=== PATIENT | female | born 1940 | race Caucasian/White ===

== ENCOUNTER 2018-11-26 10:12 | Outpatient (CLI) | payer MEDICARE, SELFPAY ==
[2018-11-26 10:36] LABS: Absolute Basophil Count 0.06 k/cumm (0.0-0.2); Absolute Eosinophil Count 0.13 k/cumm (0.0-0.7); Absolute Lymphocyte Count 0.76 k/cumm (1.2-3.4); Absolute Monocyte Count 0.32 k/cumm (0.11-0.7); Absolute Neutrophil Count 1.99 k/cumm (1.2-6.7); Basophils % 1.8; HCT 44.5 % (36.0-46.0); HGB 14.7 g/dL (12.0-15.5); Lymphocytes % 23.3; Mean Corpuscular Hemoglobin 32.7 pg (27.0-33.0); Mean Corpuscular Volume 98.9 fL (80-95); Mean Platelet Volume 10.1 fL (8.0-11.0); Monocytes % 9.8; Neutrophils % 61.1; Platelet Count 184 x1000/uL (130-400); RBC Distribution Width 14.2 % (11.7-14.6); White Blood Cell Count 3.26 k/cumm (4.4-10.8)
[2018-11-26 11:19] LABS: ALT 20 U/L (12-78); AST 10 U/L (15-37); Albumin 3.7 g/dL (3.4-5.0); Alkaline Phosphatase 120 U/L (46-116); BUN 17 mg/dL (7-18); Bilirubin, Total 0.4 mg/dL (0.2-1.0); Calcium 9.6 mg/dL (8.5-10.1); Chloride 104 mmol/L (98-107); Glucose 93 mg/dL (70-100); LDH 137 U/L (81-234); Potassium 4.3 mmol/L (3.5-5.1); Sodium 142 mmol/L (136-145); Total Protein 6.5 g/dL (6.4-8.2)
== END 2018-11-26 10:32 ==
PROVIDERS: PCP Nurse Practitioner Family; Visit Provider Internal Medicine Hematology & Oncology
DX: C82.00 Follicular lymphoma grade I, unspecified site (principal)
CPT/HCPCS: 36415; 80053; 83615; 85025

== ENCOUNTER 2021-01-25 03:03 | Outpatient (CLI) | payer MEDICARE, SELFPAY ==
[2021-01-25 09:44] LABS: Absolute Basophil Count 0.07 10^3/uL (0.0-0.2); Absolute Eosinophil Count 0.13 10^3/uL (0.0-0.7); Absolute Lymphocyte Count 1.02 10^3/uL (1.2-3.4); Absolute Monocyte Count 0.35 10^3/uL (0.1-0.8); Absolute Neutrophil Count 2.22 10^3/uL (1.2-6.7); Basophils % 1.8; Eosinophils % 3.4; HCT 44.4 % (36.0-46.0); HGB 14.3 g/dL (11.2-15.7); Lymphocytes % 26.9; MCH 32.6 pg (27.0-33.0); MCHC 32.2 % (32.0-36.0); MCV 101.4 fL (80-95); MPV 9.8 fL (8.0-11.0); Monocytes % 9.2; Neutrophils % 58.7; Nucleated RBC 0 %; Platelet Count 162 10^3/uL (130-400); RBC 4.38 10^6/uL (3.93-5.22); RDW 12.7 % (11.7-14.6); RDW-SD 47.7 fL; WBC 3.79 10^3/uL (4.4-10.8)
[2021-01-25 09:56] LABS: ALT 19 U/L (14-59); AST 13 U/L (15-37); Alkaline Phosphatase 137 U/L (46-116); Anion Gap 5.7 mmol/L (3-11); BUN 18 mg/dL (7-18); Bilirubin, Total 0.5 mg/dL (0.2-1.0); CO2 31.3 mmol/L (21.0-32.0); CREATININE 0.9 mg/dL (0.55-1.02); Calcium 9.4 mg/dL (8.5-10.1); Chloride 107 mmol/L (98-107); Glucose 88 mg/dL (74-106); LDH 139 U/L (81-234); Potassium 4.3 mmol/L (3.5-5.1); Sodium 144 mmol/L (136-145); Total Protein 6.9 g/dL (6.4-8.2)
== END 2021-01-25 03:04 | disposition home or self-care (01) ==
LOC: LBO 03:03
PROVIDERS: PCP Nurse Practitioner Family; Visit Provider Internal Medicine Hematology & Oncology
DX: C82.90 Follicular lymphoma, unspecified, unspecified site (principal)
CPT/HCPCS: 36415; 80053; 83615; 85025

== ENCOUNTER 2022-02-14 12:32 | Outpatient (CLI) | payer MEDICARE, SELFPAY ==
[2022-02-14 11:41] LABS: Abs Immature Grans 0.01 10^3/uL (0.0-0.06); Absolute Basophil Count 0.06 10^3/uL (0.0-0.2); Absolute Eosinophil Count 0.09 10^3/uL (0.0-0.7); Absolute Lymphocyte Count 1.45 10^3/uL (1.2-3.4); Absolute Monocyte Count 0.52 10^3/uL (0.1-0.8); Absolute Neutrophil Count 3.64 10^3/uL (1.2-6.7); Eosinophils % 1.6; HCT 41.4 % (36.0-46.0); HGB 13.4 g/dL (11.2-15.7); Immature Grans % 0.2; Lymphocytes % 25.1; MCH 32.2 pg (27.0-33.0); MCHC 32.4 % (32.0-36.0); MCV 100 fL (80-95); MPV 10.1 fL (8.0-11.0); Neutrophils % 63.1; Platelet Count 173 10^3/uL (130-400); RBC 4.16 10^6/uL (3.93-5.22); RDW 13.2 % (11.7-14.6); RDW-SD 48.8 fL; WBC 5.77 10^3/uL (4.4-10.8)
[2022-02-14 12:24] LABS: ALT 17 U/L (14-59); AST 12 U/L (15-37); Albumin 3.9 g/dL (3.4-5.0); Alkaline Phosphatase 150 U/L (46-116); Anion Gap 7.4 mmol/L (3-11); BUN 17 mg/dL (7-18); Bilirubin, Total 0.6 mg/dL (0.2-1.0); CO2 29.6 mmol/L (21.0-32.0); CREATININE 0.8 mg/dL (0.55-1.02); Calcium 9.9 mg/dL (8.5-10.1); Chloride 106 mmol/L (98-107); Estimated GFR 73.98 (mL/min/1.73m2); Glucose 105 mg/dL (74-106); LDH 152 U/L (81-234); Potassium 4.7 mmol/L (3.5-5.1); Sodium 143 mmol/L (136-145); Total Protein 7.2 g/dL (6.4-8.2)
[2022-02-15 11:22] LABS: IgG 419 mg/dL (610-1,616)
== END 2022-02-14 12:33 | disposition home or self-care (01) ==
LOC: LBO 12:36
PROVIDERS: PCP Nurse Practitioner Family; Visit Provider Nurse Practitioner Adult Health
DX: D80.1 Nonfamilial hypogammaglobulinemia (principal); C82.09 Follicular lymphoma grade I, extranodal and solid organ sites
CPT/HCPCS: 36415; 80053; 82784; 83615; 85025

== ENCOUNTER 2023-03-26 01:47 | Outpatient (CLI) | payer MEDICARE, SELFPAY ==
[2023-03-26 10:22] LABS: Abs Immature Grans 0.01 10^3/uL (0.0-0.06); Absolute Basophil Count 0.07 10^3/uL (0.0-0.2); Absolute Eosinophil Count 0.05 10^3/uL (0.0-0.7); Absolute Lymphocyte Count 0.87 10^3/uL (1.2-3.4); Absolute Neutrophil Count 1.98 10^3/uL (1.2-6.7); Basophils % 2.1; Eosinophils % 1.5; HCT 40.2 % (36.0-46.0); HGB 13.2 g/dL (11.2-15.7); Immature Grans % 0.3; Lymphocytes % 26.5; MCH 32.4 pg (27.0-33.0); MCHC 32.8 % (32.0-36.0); MCV 99 fL (80-95); MPV 9.2 fL (8.0-11.0); Monocytes % 9.1; Neutrophils % 60.5; Platelet Count 214 10^3/uL (130-400); RBC 4.08 10^6/uL (3.93-5.22); RDW 12.6 % (11.7-14.6); RDW-SD 45.5 fL; WBC 3.28 10^3/uL (4.4-10.8)
[2023-03-26 10:41] LABS: ALT 18 U/L (14-59); AST 13 U/L (15-37); Albumin 3.2 g/dL (3.4-5.0); Alkaline Phosphatase 126 U/L (46-116); Anion Gap 6.6 mmol/L (3-11); BUN 15 mg/dL (7-18); Bilirubin, Total 0.6 mg/dL (0.2-1.0); CO2 28.4 mmol/L (21.0-32.0); CREATININE 0.9 mg/dL (0.55-1.02); Calcium 9.6 mg/dL (8.5-10.1); Chloride 105 mmol/L (98-107); Estimated GFR 63.83 (mL/min/1.73m2); Glucose 90 mg/dL (74-106); LDH 151 U/L (81-234); Potassium 4.3 mmol/L (3.5-5.1); Sodium 140 mmol/L (136-145); Total Protein 6.4 g/dL (6.4-8.2)
[2023-03-27 09:28] LABS: IgA 354 mg/dL (85-499); IgG 391 mg/dL (610-1616); IgM 25 mg/dL (35-242)
== END 2023-03-26 01:48 | disposition home or self-care (01) ==
PROVIDERS: PCP Nurse Practitioner Family; Visit Provider Nurse Practitioner Adult Health
DX: C82.98 Follicular lymphoma, unspecified, lymph nodes of multiple sites (principal)
CPT/HCPCS: 36415; 80053; 82784; 83615; 85025

== ENCOUNTER 2023-08-28 12:29 | Outpatient (CLI) | payer MEDICARE, SELFPAY ==
[2023-08-28 10:30] LABS: Abs Immature Grans 0.01 10^3/uL (0.0-0.06); Absolute Basophil Count 0.05 10^3/uL (0.0-0.2); Absolute Lymphocyte Count 1.14 10^3/uL (1.2-3.4); Absolute Monocyte Count 0.26 10^3/uL (0.1-0.8); Absolute Neutrophil Count 2.23 10^3/uL (1.2-6.7); Basophils % 1.3; Eosinophils % 2.6; HCT 42.3 % (36.0-46.0); HGB 13.6 g/dL (11.2-15.7); Immature Grans % 0.3; Lymphocytes % 30.1; MCH 32.8 pg (27.0-33.0); MCHC 32.2 % (32.0-36.0); MCV 102 fL (80-95); MPV 9.6 fL (8.0-11.0); Monocytes % 6.9; Neutrophils % 58.8; Platelet Count 176 10^3/uL (130-400); RBC 4.15 10^6/uL (3.93-5.22); RDW 13.3 % (11.7-14.6); RDW-SD 50.6 fL; WBC 3.79 10^3/uL (4.4-10.8)
[2023-08-28 10:45] LABS: ALT 24 U/L (14-59); AST 14 U/L (15-37); Albumin 3.6 g/dL (3.4-5.0); Alkaline Phosphatase 126 U/L (46-116); Anion Gap 6.9 mmol/L (3-11); BUN 15 mg/dL (7-18); Bilirubin, Total 0.4 mg/dL (0.2-1.0); CO2 30.1 mmol/L (21.0-32.0); CREATININE 0.7 mg/dL (0.55-1.02); Calcium 9.2 mg/dL (8.5-10.1); Chloride 106 mmol/L (98-107); Estimated GFR 85.76 (mL/min/1.73m2); Glucose 96 mg/dL (74-106); LDH 150 U/L (81-234); Potassium 4.7 mmol/L (3.5-5.1); Sodium 143 mmol/L (136-145); Total Protein 6.8 g/dL (6.4-8.2)
== END 2023-08-28 12:30 | disposition home or self-care (01) ==
LOC: LBO 12:30
PROVIDERS: PCP Nurse Practitioner Family; Visit Provider Internal Medicine Hematology & Oncology
DX: C82.98 Follicular lymphoma, unspecified, lymph nodes of multiple sites (principal)
CPT/HCPCS: 36415; 80053; 83615; 85025